=== PATIENT | male | born 1955 | race African-American/Black ===

== ENCOUNTER 2018-09-03 20:46 | Inpatient (IN) ==
[2018-09-03 21:29] LABS: BASO# 0.01 X1000 (0.0-0.2); BASO% 0.1 % (0.0-0.8); EOS# 0.01 X1000 (0.0-0.7); EOS% 0.1 % (0.0-10.0); HEMATOCRIT 44.2 % (42.0-52.0); HEMOGLOBIN 14.8 g/dL (14.0-18.0); IMM GRAN# 0.02 X1000 (0.0-0.04); IMM GRAN% 0.3 % (0.0-0.5); LYMPH# 1.92 X1000 (1.2-3.4); LYMPH% 26.7 % (20.5-51.1); MCH 29.7 PG (27-31); MCHC 33.5 g/dL (33-37); MCV 88.6 FL (81-99); MONO# 0.44 X1000 (0.11-0.59); MONO% 6.1 % (1.7-9.3); MPV 9.6 FL (7.4-10.4); NEUT% 66.7 % (42.2-75.2); PLT 260 X1000 (130-400); RBC 4.99 XMIL (4.7-6.1); RDW 14.2 % (11.5-14.5)
--- NOTE | 2018-09-03 21:29 | Diag Imaging Result Doc PS360 ---
EXAM: CT HEAD W/O CONTRAST 09/03/2018 HISTORY: AMS TECHNIQUE: This exam was performed using automated exposure control, adjustment of mA or kV according to patient size, and/or use of iterative reconstruction technique. COMMENT: There is some encephalomalacia in the right occipital lobe. There is a lacune in the midbrain on the left. There are multiple lacunae present in both basal ganglia and also in the left thalamus. There is patchy lucency throughout the white matter of both hemispheres particularly in the left centrum semiovale ovale and avery radiata regions. There is no evidence of mass effect bleed or abnormal extra-axial fluid collection. There are no previous studies available for comparison. The visualized paranasal sinuses are clear. The calvarium is intact. IMPRESSION: Extensive chronic ischemic changes. No definite evidence of acute disease. Electronically signed by Mendoza Cervantes 09/03/2018 9:27 PM
--- NOTE | 2018-09-03 21:31 | Diag Imaging Result Doc PS360 ---
EXAM: CHEST-1 VIEW 09/03/2018 HISTORY: AMS TECHNIQUE: AP upright chest COMMENT: The lungs are not as well-expanded as on 05/03/2018, considering this there has been no significant change. IMPRESSION: No acute disease. Electronically signed by Mendoza Cervantes 09/03/2018 9:29 PM
[2018-09-03 21:32] LABS: INR 0.95; PROTIME 13.4 Seconds (11.0-16.0)
[2018-09-03 21:33] LABS: PTT 29.1 Seconds (22.3-41.8)
[2018-09-03 21:49] LABS: AGAP 13; ALB/GLOB RATIO 1.1; ALBUMIN 3.8 g/dL (3.5-5.0); ALKALINE PHOSPHATASE 74 U/L (32-122); BUN 8 mg/dL (8-22); CALCIUM 8.7 mg/dL (8.8-10.2); CHLORIDE 101 mmol/L (98-107); CK PROFILE 29 U/L (24-204); COSMO 283; CREATININE 0.8 mg/dL (0.7-1.2); ESTIMATED GFR > 60; GLUCOSE 135 mg/dL (70-104); GOT 11 U/L (10-34); GPT 11 U/L (10-44); POTASSIUM 4.3 mmol/L (3.5-5.1); SODIUM 142 mmol/L (136-145); TCO2 28 mmol/L (25-35); TOTAL BILIRUBIN 0.74 mg/dL (0.20-1.00); TOTAL PROTEIN 7.3 g/dL (6.3-8.3)
[2018-09-03 23:17] LABS: URINE SOURCE CATH
[2018-09-03 23:30] LABS: BILIRUBIN URINE NEGATIVE (NEGATIVE); BLOOD URINE NEGATIVE (NEGATIVE); COLOR YELLOW; GLUCOSE URINE NEGATIVE (NEGATIVE); KETONE URINE NEGATIVE (NEGATIVE); LEUKOCYTES URINE NEGATIVE (NEGATIVE); NITRITE URINE NEGATIVE (NEGATIVE); PROTEIN URINE TRACE mg/dL (NEGATIVE); TURBIDITY URINE CLEAR (CLEAR); UROBILINOGEN URINE 2 mg/dL (NORMAL)
[2018-09-03 23:34] LABS: UR EPITHELIAL CELLS <10 /HPF (<10); URINE BACTERIA NEGATIVE /HPF; URINE RBC <10 /HPF (<10); URINE WBC <10 /HPF (<10)
[2018-09-04] MEDS ORDERED: NS 500 ML IV ONE (00:42)
[2018-09-04 03:32] LABS: UR AMPHETAMINES QUAL NONE DETECTED (NONE DETECT); UR BARBITUATES QUAL NONE DETECTED (NONE DETECT); UR BENZODIAZEPIN QUAL NONE DETECTED (NONE DETECT); UR CANNABINOIDS QUAL NONE DETECTED (NONE DETECT); UR COCAINE QUAL NONE DETECTED (NONE DETECT); UR METHADONE QUAL NONE DETECTED (NONE DETECT); UR OPIATES QUAL NONE DETECTED (NONE DETECT); UR OXYCODONE QUAL NONE DETECTED (NONE DETECT); UR PCP QUAL NONE DETECTED (NONE DETECT)
--- NOTE | 2018-09-04 04:13 | HISTORY AND PHYSICAL ---
CHIEF COMPLAINT: Altered mental status and weakness. HISTORY OF PRESENT ILLNESS: Mr. Henriquez is a 63-year-old male who presented to the emergency room with his today. Per the , he was just acting kind of sluggish and was slow to respond to questions. On evaluation, the patient continued to be just very slow to respond verbally. However, he was alert and oriented times 3. He did not have any focal motor deficits that were noted. Seemed to be moving all extremities. However, he was somewhat sluggish to move as well. This is apparently not the patient's baseline. A CT scan of the patient's head showed extensive chronic ischemic changes, did not show any acute intracranial process. The patient was noted to be hypertensive in the emergency room as well and mildly bradycardic. However, he does take a large dose of metoprolol daily. The patient will be admitted in observation status for further evaluation and treatment. PAST MEDICAL HISTORY: 1. Arthritis. 2. Hypertension. 3. Diabetes mellitus type 2, now insulin dependent. 4. Prostate cancer. PREVIOUS SURGICAL HISTORY: Prostate surgery. SOCIAL HISTORY: Lives at home with his . No tobacco, alcohol or illicit drugs. FAMILY HISTORY: Patient was unable to tell me any chronic illnesses in first-degree relatives. was not present during that portion of interview. ALLERGIES: Lisinopril. HOME MEDICATIONS: 1. Metoprolol 100 mg p.o. daily. 2. Prednisone 15 mg p.o. daily. 3. Levemir 15 units subcutaneous at bedtime. 4. Vitamin D3 50,000 units 1 per week. REVIEW OF SYSTEMS: Fourteen point review of systems conducted with the patient. He denies complaint. Pertinent positives for admission are listed above in the HPI. All other systems reviewed and found to be negative. PHYSICAL EXAMINATION: VITAL SIGNS: Temperature 97.5, pulse 47, respirations 19, blood pressure 188/94, oxygen saturation 96% on room air. GENERAL: Very slow to respond, lethargic-appearing 63-year-old male lying in the ER stretcher. He is alert and oriented times 3, answers all questions appropriately. HEENT: Head is atraumatic, normocephalic. Pupils equal, round, reactive to light. Extraocular eye movement is intact. Sclerae are anicteric. Conjunctiva is pink. Oral mucosa is mildly dry. NECK: Supple. No JVD. No thyromegaly. Trachea is midline. No cervical lymphadenopathy. CARDIAC: S1, S2 appreciated. No murmurs, gallops, rubs. LUNGS: Clear to auscultation bilaterally. No rhonchi, wheezes, rales. Symmetric rise and fall with respirations. ABDOMEN: Soft, nondistended, nontender. Bowel sounds present all 4 quadrants, normoactive. No pulsatile mass. No organomegaly. EXTREMITIES: No clubbing, cyanosis, or edema. One-plus pedal pulses. Bilateral feet are cool to touch. MUSCULOSKELETAL: 3/5 strength bilateral upper and lower extremities, equal bilaterally. GENITOURINARY: No bladder distention. Patient voids. Otherwise deferred. NEUROLOGICAL: Very slow to respond. Alert and oriented times 3. Cranial nerves II through XII appear to be grossly intact. DIAGNOSTIC DATA: A CT of the head showed extensive chronic ischemic changes. Chest x-ray: No acute disease. LABORATORY DATA: CBC within normal limits. Coagulation studies within normal limits. Glucose 135. Otherwise, chemistry panel within normal limits. Urine unremarkable. ASSESSMENT AND PLAN: 1. Rule out cerebrovascular accident. Patient is very weak. He has extensive chronic microvascular changes on his CT scan. We will order an MRI tomorrow morning. However, this does not appear to be a CVA. We will also allow for permissive hypertension overnight. It is possible also that the patient is having progressive vascular dementia that is beginning. 2. Weakness and lethargy. This is of unknown etiology at this time. As noted above, we will order MRI of brain tomorrow. Patient's laboratory data is normal. UDS is pending. However, the patient denies any type of sedating medications. The confirms this as well. 3. Hypertension and hyperlipidemia. Continue home medications. 4. Bradycardia. This was in the 40s and 50s. This is likely the patient's baseline. He does take 100 mg of metoprolol daily. 5. Hypertension with goal to be determined. Patient's states that his blood pressure is usually within normal limits. We will continue to monitor and allow permissive hypertension related to altered mental status. 6. Diabetes mellitus type 2, now insulin dependent. Continue patient's long-acting insulin. Check the fingerstick blood sugar q.a.c. and at bedtime. Hemoglobin A1c and diabetic diet. Further recommendations per patient clinical course. Dictated by PAUL Lowery for Michael Ann MD cc: PAUL Lowery MD
[2018-09-04] MEDS ORDERED: ZOFRAN IV PRN (05:14)
[2018-09-04] MEDS ORDERED: TYLENOL PO PRN (05:14)
--- NOTE | 2018-09-04 05:20 | HISTORY AND PHYSICAL ---
ADDENDUM: Patient seen and examined by myself in the ER. Full note dictated and discussed with nurse practitioner. Patient presented to the hospital with his . She notes that today he started being slow to talk, more fatigued than usual. In the ER, his heart rate 48, blood pressure is 188/94. The patient, however, is awake, alert. He does answer questions appropriately although very slow to respond. He has no focal weakness although does have generalized weakness. We will admit in the hospital, place him on fluids, oxygen and we will follow. cc: Michael Ann MD
[2018-09-04] MEDS: NS 1,000 ML IV SCH (05:58)
[2018-09-04] MEDS: LOVENOX SUBQ SCH (05:59)
[2018-09-04 07:30] LABS: BASO# 0.01 X1000 (0.0-0.2); BASO% 0.1 % (0.0-0.8); EOS# 0.04 X1000 (0.0-0.7); EOS% 0.6 % (0.0-10.0); HEMATOCRIT 43.5 % (42.0-52.0); HEMOGLOBIN 14.5 g/dL (14.0-18.0); IMM GRAN# 0.02 X1000 (0.0-0.04); IMM GRAN% 0.3 % (0.0-0.5); LYMPH# 2.29 X1000 (1.2-3.4); LYMPH% 33.7 % (20.5-51.1); MCH 29.4 PG (27-31); MCHC 33.3 g/dL (33-37); MCV 88.2 FL (81-99); MONO# 0.52 X1000 (0.11-0.59); MONO% 7.6 % (1.7-9.3); MPV 9.7 FL (7.4-10.4); NEUT# 3.92 X1000 (1.4-6.5); NEUT% 57.7 % (42.2-75.2); PLT 224 X1000 (130-400); RBC 4.93 XMIL (4.7-6.1); RDW 14.1 % (11.5-14.5)
[2018-09-04 08:03] LABS: AGAP 11; BUN 7 mg/dL (8-22); CHLORIDE 104 mmol/L (98-107); COSMO 279; CREATININE 0.6 mg/dL (0.7-1.2); ESTIMATED GFR > 60; GLUCOSE 120 mg/dL (70-104); POTASSIUM 3.5 mmol/L (3.5-5.1); SODIUM 140 mmol/L (136-145); TCO2 25 mmol/L (25-35)
[2018-09-04 08:15] LABS: HEMOGLOBIN A1C 8.4 % (4.8-6.0)
--- NOTE | 2018-09-04 09:26 | PROGRESS NOTE ---
DATE: 09/04/2018 Addendum: Patient seen again. He is still slightly confused. We will continue him in the hospital. Heart rates are still 48. We will hold his Toprol. Further orders as needed. cc: Michael Ann MD MTDD
[2018-09-04] MEDS: LOPRESSOR PO SCH (09:41)
[2018-09-04] MEDS ORDERED: VITAMIN D PO SCH (16:30)
[2018-09-04] MEDS: PREDNISONE PO SCH (18:48)
[2018-09-04] MEDS: LEVEMIR SUBQ SCH (21:24)
[2018-09-05] MEDS: LOVENOX SUBQ SCH (04:30)
--- NOTE | 2018-09-05 07:10 | EKG Report ---
Test Performed on : 09/04/2018 06:06:33 AM Test Reason : chest pain Blood Pressure : / mmHG Vent. Rate : 046 BPM Atrial Rate : 046 BPM P-R Int : 118 ms QRS Dur : 102 ms QT Int : 470 ms P-R-T Axes : 059 -21 -33 degrees QTc Int : 411 ms Sinus bradycardia. Minimal voltage criteria for LVH, may be normal variant Nonspecific ST abnormality Abnormal ECG When compared with ECG of 03-SEP-2018 21:36, (Unconfirmed) No significant change was found Confirmed by Brian GENAO, Carlos ([id number]) on 09/05/2018 8:54:22 AM
--- NOTE | 2018-09-05 08:57 | ECHO REPORT ---
ORDER DATE: 09/04/2018 INTERPRETING PHYSICIAN: Dr. Lorenz REQUESTING PHYSICIAN: CLINICAL INDICATIONS: This is a 63-year-old male with shortness of breath, possible stroke. M-MODE MEASUREMENTS: Right ventricle: cm. Left ventricle end diastole: 4.2 cm. Left ventricle end systole: 3.2 cm. Posterior wall: 0.8 cm. Interventricular septum: 0.8 cm. Left atrium: 2.8 cm. Aortic root: 2.9 cm. SUMMARY OF 2-DIMENSIONAL IMAGIN. This study was difficult. Optison was added to visualize endocardium. 2. Left ventricular systolic function appears to be at the lower limits of normal, estimated at 55%. The patient is bradycardic. 3. Aortic valve looks normal. Color flow mapping is unremarkable. 4. Mitral valve showed mild degree of regurgitation. 5. Pulse wave Doppler of mitral inflow shows normal E/A ratio. 6. Tissue Doppler of septal and lateral mitral annulus averages 9 cm. 7. There is no diastolic dysfunction. 8. Tricuspid valve looks normal with minimal degree of regurgitation. 9. Pulmonary pressure is estimated at 29 mmHg. 10.Pulmonic valve appears to be grossly normal. 11.There is no pericardial effusion, mass or thrombus. CONCLUSIONS: In summary, echocardiographic study appears to be grossly within normal range. Clinical correlation is recommended. cc: MD Estuardo Jeronimo CRNP
[2018-09-05] MEDS: LOPRESSOR PO SCH (09:27)
[2018-09-05] MEDS: PREDNISONE PO SCH (09:27)
--- NOTE | 2018-09-05 09:42 | EKG Report ---
Test Performed on : 09/03/2018 9:36:58 PM Test Reason : CP Blood Pressure : / mmHG Vent. Rate : 047 BPM Atrial Rate : 047 BPM P-R Int : 102 ms QRS Dur : 106 ms QT Int : 472 ms P-R-T Axes : 047 -28 -32 degrees QTc Int : 417 ms Sinus bradycardia. with short NE Voltage criteria for left ventricular hypertrophy Nonspecific T wave abnormality Abnormal ECG When compared with ECG of 25-FEB-2016 13:47, No significant change was found Unconfirmed Result
[2018-09-05] MEDS: NS 1,000 ML IV SCH ×2 (11:12→22:45)
[2018-09-05] MEDS ORDERED: INSULIN PEN NEEDLES ONE (13:36)
--- NOTE | 2018-09-05 14:23 | Diag Imaging Result Doc PS360 ---
MRI BRAIN W/WO CONTRAST - 09/04/2018 INDICATION: CVA COMPARISON: Head CT 09/03/2018 FINDINGS: There are significant areas of restricted diffusion at the right basal ganglia. These indicate a recent stroke. No intracranial mass or hemorrhage. There is a stable, small old stroke at the posterior right occipital lobe. There is extensive chronic microvascular disease of the periventricular cerebral white matter. This also involves the eden and the left side of the midbrain. There is no abnormal contrast enhancement. IMPRESSION: Rather extensive recent stroke of the right basal ganglia. This report was discussed with RT Nayla on 09/05/2018 at 2:20 PM and was readback. Electronically signed by Benton Horner 09/05/2018 2:21 PM
[2018-09-05] MEDS ORDERED: ASPIRIN PR SCH (15:15)
--- NOTE | 2018-09-05 15:33 | PROGRESS NOTE ---
DATE: 09/05/2018 SUBJECTIVE: The patient continues to be lethargic. No other issues noted as per nursing staff overnight. OBJECTIVE: Vital Signs: Temperature 98.8 degrees, heart rate 53 respiratory rate 16, blood pressure 139/60, O2 saturation 98% on room air. General: This is a chronically ill appearing, 63- year-old male, lying in bed, in no acute distress. Cardiovascular: S1 and S2 heard. No murmurs, gallops, or rubs. Regular rate and rhythm. Respiratory: Clear bilaterally to auscultation. No work of breathing or using accessory muscles. Abdomen: Soft, nontender to palpation. Bowel sounds present. No organomegaly. Extremities: No clubbing, cyanosis, or edema. Peripheral pulses present in both legs. Neurological: The patient is lethargic. Does not follow commands. LABORATORY DATA: Reviewed. ASSESSMENT AND PLAN: 1. Right basal ganglia stroke. At this point, that is what the report of the MRI showed. At this point because he is not able to get any medication by mouth, will start aspirin per rectal 300 daily. We are going to do swallow evaluation to make sure that he is not aspirating. 2. Hypertension. The patient's blood pressure is under control. He has been receiving metoprolol but considering that he is bradycardic, will stop it and see how he does. 3. Diabetes mellitus type 2. We will continue with sliding scale insulin. Accu-Chek before meals and also at bedtime. Hemoglobin A1c is 8.4. 4. Disposition. We will continue to monitor this patient closely. cc: Tremaine Carlson MD MTDD
--- NOTE | 2018-09-05 16:21 | Diag Imaging Result Doc PS360 ---
BA SWALLOW W/VIDEO SPEECH THER - 09/05/2018 INDICATION: stroke TECHNIQUE: Total fluoroscopy time was 15 seconds. 62 images were obtained. COMPARISON: None FINDINGS: There is a normal swallowing mechanism. Thin liquid and pureed solid consistencies were taken without difficulty. No aspiration or penetration. IMPRESSION: Normal swallowing exam. Electronically signed by Benton Horner 09/05/2018 4:18 PM
[2018-09-05] MEDS: ASPIRIN PO SCH (17:31)
[2018-09-05] MEDS: LEVEMIR SUBQ SCH (22:44)
[2018-09-06] MEDS: NS 1,000 ML IV SCH (04:12)
[2018-09-06] MEDS: LOVENOX SUBQ SCH ×2 (04:12→05:10)
[2018-09-06] MEDS: ASPIRIN PO SCH (09:15)
[2018-09-06] MEDS: PREDNISONE PO SCH (09:15)
[2018-09-06 09:25] LABS: CHOLESTEROL 208 mg/dL (0-200); HDL 49 mg/dL (35-55); LDL 136 mg/dL; TRIGLYCERIDES 116 mg/dL (39-160); VLDL 23 mg/dL
--- NOTE | 2018-09-06 10:59 | CONSULTATION ---
DATE OF CONSULTATION: 09/06/2018 HISTORY OF PRESENT ILLNESS: Mr. Henriquez presented a few days ago with trouble keeping alert, slurred speech. He does not recall that clearly himself now. History from his attentive is that he seemed to be at his baseline state Wednesday night. Wednesday morning, 2 days ago, he got up to the bathroom and seemed to be longer than expected. She went to check on him and found him standing appearing to be sleeping while standing up, very sluggish with movement. She did not notice focal weakness. She helped him to bed. He had trouble staying awake. When he tried to speak, speech seemed slurred and weak. He did not complain of headache, vision disturbance, specific neurologic problem. He was brought to the hospital. Lab showed A1c 8.4%, blood sugars 120s-170s. Urine drug screen was negative. Total cholesterol is slightly elevated at 208. Blood sugars have been controlled. Urine drug screen was all negative. He was afebrile. Initial heart rate was 40s to 60s (home medicines include metoprolol). Initial systolic blood pressures were 150s to 180s, later 130s to 160s. Brain MRI with and without contrast showed evidence of recent ischemic infarction in the right basal ganglia area, possibly multiple small almost confluent infarctions. There are also typical age- related chronic changes and atrophy. There is past history of hypertension, diabetes mellitus, prostate cancer. reports patient supervised his medications himself, but she believes he took them as directed. She reports he did not check blood sugars at home. He does smoke cigarettes. PHYSICAL EXAMINATION: Neurologic: On exam, Mr. Henriquez is awake, alert, attentive. He answered questions appropriately. Speech is a little bit dysarthric, but easily understood. Language function is intact on brief bedside testing. I did not test his cognitive function. Head and neck are unremarkable. Visual dacosta are full tested by confrontational finger counting. Extraocular movements are full. Facial motility seems a little bit diminished bilaterally, but symmetric. Tongue is midline. He can hear. Shoulder shrug is good bilaterally. He has good power in the arms and legs. Tone may be very slightly increased in the left arm. He did well on [id number] testing bilaterally. He reports diminished pinprick in a stocking pattern bilaterally. I did not test his gait. Reflexes are absent at the ankles, 2+ symmetrically at the knees and 1+ symmetrically at the wrists. IMPRESSION: 1. Imaging evidence of acute nondominant subcortical right hemisphere infarction. He does not have a definite consistent focal deficit on my exam. 2. Presentation with sluggishness, trouble staying awake, slurred speech. This is nonfocal and may or may not be related to the recent cerebral infarction. He presented with bradycardia which may have been contributing. 3. I wonder about baseline cognitive impairment. After thorough discussion with , I am not certain. 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 He has stopped taking the initiative with family matters. We might reassess his cognitive function more thoroughly later. If there is cognitive impairment, that would predispose him to a greater degree of encephalopathy with any toxic or metabolic disturbance. RECOMMENDATIONS: I do not have any urgent suggestion. I would continue following blood pressure and treat if systolics exceed 180. Later, we can treat blood pressure more aggressively. Carotid imaging would be reasonable, but is not urgent. I reviewed his risk factors for cerebrovascular disease and strongly encouraged him to quit smoking cigarettes. He needs to be aggressive with management of his blood sugar. I think it would be reasonable to add a statin unless there is contraindication or history of previous intolerance. Thanks for asking Neurology to see Mr. Henriquez. cc: MD SADIE Gan III
--- NOTE | 2018-09-06 11:36 | PROGRESS NOTE ---
DATE: 09/06/2018 SUBJECTIVE: Patient is definitely more awake today. No acute issues noted as per nursing staff overnight. OBJECTIVE: Vital Signs: Temperature 96.7 degrees, heart rate 51, respiratory rate 16, blood pressure 137/50, O2 saturation 99% on room air. General Examination: This is a chronically ill- appearing, 63-year-old, male, lying in bed, in no acute distress. Cardiovascular Examination: S1 and S2 heard. No murmurs, gallops, or rubs. Regular rate and rhythm. Respiratory Examination: Clear bilaterally to auscultation. No work of breathing or using accessory muscles. Abdomen: Soft, nontender to palpation. Bowel sounds present. No organomegaly. Extremities: No clubbing, cyanosis, or edema. Peripheral pulses present in both legs. Neurological Examination: The patient is awake. Moves 4 extremities. Cranial nerves 2-12 grossly normal. Laboratory Data: Reviewed. ASSESSMENT AND PLAN: 1. Right basal ganglia stroke. Clinically, this patient is more awake. He has passed a swallow evaluation so he is on a healthy heart diet. Neurology has evaluated this patient. There is a CT angiogram of the head and neck ordered to complete the workup for a stroke. We will continue with aspirin by mouth. 2. Hypertension. Blood pressure is under control. The patient has been on metoprolol before for blood pressure but is not receiving it. We will continue to allow permissive hypertension. 3. Diabetes mellitus type 2. We will continue with sliding scale insulin, and Accu-Chek before meals and also at bedtime. 4. Disposition. I think this patient needs to go to rehab. [facility] has a bed for him tomorrow so if he is doing much better tomorrow and no other issues noted with this patient, he can be discharged to rehab tomorrow. cc: Tremaine Carlson MD MTDD
--- NOTE | 2018-09-06 12:21 | Diag Imaging Result Doc PS360 ---
EXAM: CT ANGIOGRAM HEAD/NECK 09/06/2018 HISTORY: right basal ganglia stroke TECHNIQUE: This exam was performed using automated exposure control, adjustment of mA or kV according to patient size, and/or use of iterative reconstruction technique. COMMENT: 3-D MIPS were performed. There is no evidence of aneurysm or major branch occlusion. Some calcifications are present in the left carotid bulb and proximal internal carotid artery. There are calcifications in the arch of the aorta the proximal common carotid artery on the left and both subclavian arteries. Both vertebral arteries are patent. IMPRESSION: No evidence of major branch occlusion or significant stenosis. Electronically signed by Mendoza Cervantes 09/06/2018 12:18 PM
[2018-09-06] MEDS: LEVEMIR SUBQ SCH (20:20)
[2018-09-06] MEDS ORDERED: LIPITOR PO SCH (21:00)
[2018-09-07] MEDS: NS 1,000 ML IV SCH ×3 (03:53→09:13)
[2018-09-07] MEDS: LOVENOX SUBQ SCH (04:26)
[2018-09-07 06:51] LABS: BASO# 0.01 X1000 (0.0-0.2); BASO% 0.2 % (0.0-0.8); EOS# 0.07 X1000 (0.0-0.7); EOS% 1.1 % (0.0-10.0); HEMATOCRIT 39.2 % (42.0-52.0); HEMOGLOBIN 13.2 g/dL (14.0-18.0); IMM GRAN# 0.03 X1000 (0.0-0.04); IMM GRAN% 0.5 % (0.0-0.5); LYMPH# 1.92 X1000 (1.2-3.4); LYMPH% 30.6 % (20.5-51.1); MCH 29.7 PG (27-31); MCHC 33.7 g/dL (33-37); MCV 88.1 FL (81-99); MONO# 0.56 X1000 (0.11-0.59); MONO% 8.9 % (1.7-9.3); MPV 9.6 FL (7.4-10.4); NEUT# 3.68 X1000 (1.4-6.5); NEUT% 58.7 % (42.2-75.2); PLT 229 X1000 (130-400); RBC 4.45 XMIL (4.7-6.1); RDW 13.8 % (11.5-14.5); WBC 6.27 X1000 (4.8-10.8)
[2018-09-07 07:11] LABS: AGAP 10; BUN 8 mg/dL (8-22); CALCIUM 8.6 mg/dL (8.8-10.2); CHLORIDE 105 mmol/L (98-107); COSMO 275; CREATININE 0.6 mg/dL (0.7-1.2); ESTIMATED GFR > 60; GLUCOSE 91 mg/dL (70-104); POTASSIUM 3.2 mmol/L (3.5-5.1); SODIUM 139 mmol/L (136-145); TCO2 24 mmol/L (25-35)
[2018-09-07 07:32] VITALS: BP 137/66
[2018-09-07] MEDS: ASPIRIN PO SCH (09:12)
[2018-09-07] MEDS: PREDNISONE PO SCH (09:12)
--- NOTE | 2018-09-07 10:39 | PROGRESS NOTE ---
DATE: 09/07/2018 I observed Mr. Henriquez this morning walking with physical therapy. He required repeated prompting and prodding. His gait is markedly apractic. I do not see significant left hemiparetic component to correlate with his recent subcortical right hemisphere infarction. Therapist notices, if anything, he seems a little slower on the right. Discussed with Ms. Henriquez. She admits there may be some forgetfulness at baseline. 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 We might consider cholinesterase inhibitor trial when practical. CT angiogram of the head and neck was unremarkable. I do not think we need further workup from neurologic standpoint now. Thanks for asking Neurology to see Mr. Henriquez. cc: Zulema Bey III, MD MTDD
[2018-09-07] MEDS ORDERED: MIRALAX PO ONE (11:31)
--- NOTE | 2018-09-07 13:44 | DISCHARGE SUMMARY ---
ADMISSION DATE: 09/06/2018 DISCHARGE DATE: 09/07/2018 ADMISSION DIAGNOSIS: 1. Stroke-like symptoms. 2. Weakness and lethargy. 3. Hypertension and hyperlipidemia. 4. Bradycardia. 5. Diabetes mellitus type 2 requiring insulin. DISCHARGE DIAGNOSIS: 1. Extensive recent stroke at the right basal ganglia. 2. Hypertension. 3. Type 2 diabetes. 4. Hyperlipidemia. CONSULTATIONS: Zulema Bey III, MD with Neurology. DIAGNOSTIC PROCEDURES AND FINDINGS: Chest x-ray 09/03/2018: No acute disease. Head CT 09/03/2018: Extensive ischemic chronic microvascular disease, no acute change. Brain MRI 09/04/2018: Extensive recent stroke of the right basal ganglia. Head/neck CT 09/06/2018: No evidence of major branch occlusion or significant stenosis. HOSPITAL COURSE: Mr. Henriquez is a 63-year-old -[place] male with a history of prostate cancer, who presented to the ER with his after his noted him to be more lethargic and sluggish on day of exam. In the ER, he was noted to be bradycardic in the 50s but there was no acute focal deficits. Head CT was done and did not show anything acute. He was admitted and an MRI the next morning ultimately found that he had a right basal ganglia stroke. Neurology was consulted and agreed with permissive hypertension and risk factor modification specifically blood sugar management as well as nicotine abstinence. Over the next few days, the patient did start to wake up more, stroke workup was completed with an echocardiogram and neck CT none of which showed anything acute. Overall, he is now stable for discharge to [facility]. DISCHARGE MEDICATIONS: Vitamin D3 50,000 units as directed, Levemir 15 units subcutaneously at bedtime, metoprolol 100 mg p.o. daily, aspirin 325 mg daily, Lovenox 40 mg subcutaneously q.24, Lipitor 40 mg p.o. at bedtime. DISCHARGE DIET: Diabetic, heart healthy. DISCHARGE ACTIVITY: Resume activity as tolerated under the direction of [facility]. DISCHARGE LAB DATA: WBC 6.27, hemoglobin 13.2, hematocrit 39.2. Sodium 139, potassium 3.2, chloride 105, CO2 24, anion gap 10, BUN 8, creatinine 0.6, glucose 93, calcium 8.6. DISPOSITION AND OTHER DISCHARGE INSTRUCTIONS: The patient is discharged to [facility]. He is to continue all medication as directed. He is to follow up with Dr. Augustine, Dr. Glaser within a month or sooner if needed. He is to return to the ER or call 911 for worsening complaints or concerns. All questions answered. DISCHARGE TIME: Greater than 35 minutes. Dictated by PAUL Fox for Tremaine Carlson MD Addendum: Patient seen and examined by myself. Agree with PAUL note. It reflects my assessment and plan. Patient is being discharged in stable condition to rehab facility. cc: PAUL Fox MD Eston G. Norwood III, MD Sonya M. Soliman, MD Bhavna Gowda, MD MTDD
[2018-09-07] MEDS ORDERED: VIGAMOX 0.5% OPH SOLN BOTH EYES SCH (15:00)
== END 2018-09-07 13:28 | DRG 66 ==
LOC: SUPCPDRO → 4N 20:46 → ED 20:46 → SUATTDRO 09-04 04:21
PROVIDERS: ATTEND Internal Medicine
CPT/HCPCS: 51702; 70450; 70496; 70498; 70553; 71010; 71045; 74230; 80048; 80053; 80061; 80101; 80301; 80307; 80324; 80345; 80346; 80353; 80358; 80361; 80365; 81001; 82550; 82948; 83036; 83605; 83880; 83992; 84443; 84484; 85025; 85610; 85730; 87040; 92611; 93005; 93010; 93306; 96360; 96361; 97110; 97116; 97162; 97165; 97530; 99285; A9270; A9579; C8929; G0431; G0434; G0479; G0480; J1650; J7030; J7040; J7506; J7512; Q9957; Q9967; XXXXX

== ENCOUNTER 2019-06-03 18:10 | Inpatient (IN) ==
[2019-06-03 19:54] LABS: BASO# 0.01 X1000 (0.0-0.2); BASO% 0.1 % (0.0-0.8); EOS# 0.03 X1000 (0.0-0.7); EOS% 0.4 % (0.0-10.0); HEMATOCRIT 45.6 % (42.0-52.0); HEMOGLOBIN 14.7 g/dL (14.0-18.0); LYMPH# 1.18 X1000 (1.2-3.4); LYMPH% 14.2 % (20.5-51.1); MCH 28.1 PG (27-31); MCHC 32.2 g/dL (33-37); MCV 87.2 FL (81-99); MONO# 0.29 X1000 (0.11-0.59); MONO% 3.5 % (1.7-9.3); MPV 10.1 FL (7.4-10.4); NEUT# 6.82 X1000 (1.4-6.5); NEUT% 81.8 % (42.2-75.2); PLT 282 X1000 (130-400); RBC 5.23 XMIL (4.7-6.1); RDW 14.5 % (11.5-14.5); WBC 8.33 X1000 (4.8-10.8)
[2019-06-03 20:18] LABS: AGAP 14; ALBUMIN 3.7 g/dL (3.5-5.0); ALKALINE PHOSPHATASE 93 U/L (32-122); BUN 10 mg/dL (8-22); CALCIUM 9.3 mg/dL (8.8-10.2); CHLORIDE 103 mmol/L (98-107); COSMO 289; CREATININE 0.8 mg/dL (0.7-1.2); ESTIMATED GFR > 60; GLUCOSE 119 mg/dL (70-104); GOT 30 U/L (10-34); GPT 42 U/L (10-44); POTASSIUM 3.6 mmol/L (3.5-5.1); SODIUM 145 mmol/L (136-145); TCO2 28 mmol/L (25-35); TOTAL BILIRUBIN 0.46 mg/dL (0.20-1.00); TOTAL PROTEIN 7.3 g/dL (6.3-8.3)
--- NOTE | 2019-06-03 20:20 | Diag Imaging Result Doc PS360 ---
EXAM: CT HEAD W/O CONTRAST INDICATION: stroke TECHNIQUE: This exam was performed using automated exposure control, adjustment of mA or kV according to patient size, and/or use of iterative reconstruction technique. COMPARISON: 09/03/2018 FINDINGS: There is advanced white matter microangiopathy, stable. There are stable chronic lacunar infarcts involving the deep coulter matter and periventricular white matter bilaterally. There is stable focal right occipital encephalomalacia. There is no definite acute infarct given the limited sensitivity of CT versus MRI. There is no discrete intracranial mass, mass effect, or intracranial hemorrhage. The surrounding soft tissues and bony structures are essentially unremarkable. IMPRESSION: Stable chronic changes as described. No definite acute intracranial pathology by CT. Electronically signed by Artie Mc 06/03/2019 8:18 PM
[2019-06-03 20:22] LABS: CK PROFILE 350 U/L (24-204)
[2019-06-03 20:31] LABS: URINE SOURCE CATH
--- NOTE | 2019-06-03 20:33 | Diag Imaging Result Doc PS360 ---
EXAM: CHEST-2 VIEWS INDICATION: rhonchi TECHNIQUE: 2 views COMPARISON: 03/01/2019 FINDINGS: There is evidence of prior granulomatous disease, stable. The lungs are grossly clear. There is no discrete pleural fluid collection or pneumothorax. The cardiomediastinal silhouette and central vasculature are grossly unremarkable. IMPRESSION: No evidence of acute pathology by plain radiograph. Electronically signed by Artie Mc 06/03/2019 8:30 PM
[2019-06-03 20:43] LABS: BILIRUBIN URINE NEGATIVE (NEGATIVE); BLOOD URINE NEGATIVE (NEGATIVE); COLOR YELLOW; GLUCOSE URINE NEGATIVE (NEGATIVE); KETONE URINE NEGATIVE (NEGATIVE); LEUKOCYTES URINE NEGATIVE (NEGATIVE); NITRITE URINE NEGATIVE (NEGATIVE); PH URINE 7.5; PROTEIN URINE TRACE mg/dL (NEGATIVE); SP GRAVITY URINE 1.022; TURBIDITY URINE CLEAR (CLEAR); UROBILINOGEN URINE 2 mg/dL (NORMAL)
[2019-06-03 20:44] LABS: UR EPITHELIAL CELLS <10 /HPF (<10); URINE BACTERIA NEGATIVE /HPF; URINE RBC <10 /HPF (<10)
[2019-06-03 21:08] LABS: CK INDEX 1.9 (0.0-2.5); CK-MB 6.53 ng/mL (0.0-5.0)
--- NOTE | 2019-06-03 21:56 | PROVIDER DOCUMENTATION ---
This chart was entered by Abby Paige Scribe, acting as scribe for Lalit Del Valle DO. HPI-Neurological Disorder - General Chief Complaint: Weakness Stated Complaint: BLURRY VISION/WEAKNESS Time Seen by Provider: 06/03/19 19:12 Source: patient, family Allergies/Adverse Reactions: Patient Allergies Allergy/AdvReac Type Severity Reaction Status Date / Time lisinopril Allergy SWELLING Verified 02/25/16 13:19 Home Medications: Home Medication List Medication Instructions Recorded Confirmed Last Taken Type Insulin Detemir [Levemir] 15 unit SUBQ QHS 09/04/18 06/03/19 Unknown History Metoprolol Tartrate 50 mg PO BID 09/04/18 06/03/19 Unknown History Prednisone 2 tab PO DAILY 09/04/18 06/03/19 Unknown History ATORVAstatin [Lipitor] 40 mg PO QHS tab 09/07/18 06/03/19 Unknown Rx Aspirin 325 mg PO DAILY tab 09/07/18 06/03/19 Unknown Rx Baclofen 10 mg PO BID 06/03/19 06/03/19 Unknown History Donepezil [Aricept] 10 mg PO HS 06/03/19 06/03/19 Unknown History Losartan [Cozaar] 50 mg PO HS 06/03/19 06/03/19 Unknown History - History of Present Illness-Neuro Nature of Presenting Problem: 63 y/o male presents to ED with decreased/blurry vision onset last night and decreased ability to walk/stand onset this afternoon. Family of pt reports he slept until 1500 this afternoon and woke up leaning to his left side. Pt has hx R sided CVA. Pt uses walker to ambulate at baseline. Pt only takes aspirin. Pt denies dizziness. Pt states he had one episode of vomiting earlier today. Pt is alert and oriented. Severity: reports: moderate Onset/Duration: reports: this afternoon, last night Timing: reports: still present Context: reports: other (decreased/blurry vision; decreased ability to walk) Character of Altered Mental Status: reports: N/A Any recent trauma/injury?: reports: none Character of Deficits: reports: new weakness, vision problem/glaucoma, decreased ability to stand, decreased ability to walk New weakness or altered sensation location:: reports: general (diffuse) Cognitive Baseline: alert, oriented x3 Gait Baseline: uses a walker Associated Symptoms: reports: decreased ability to walk or stand, trouble walking, vomiting, vision changes Similar Symptoms Previously?: No Recently seen or treated by another doctor?: No Review of Systems - Adult - REVIEW OF SYSTEMS - ADULT Constitutional: denies: chills, fever Eyes: reports: decreased vision, blurred vision Ears, Nose, Mouth & Throat: reports: no symptoms reported Cardiovascular: denies: chest pain, palpitations Respiratory: reports: cough. denies: shortness of breath Gastrointestinal: reports: nausea, vomiting. denies: abdominal pain, diarrhea Genitourinary: reports: no symptoms reported Musculoskeletal: reports: no symptoms reported Integumentary: reports: no symptoms reported Neurological: reports: other (decreased ability to walk/stand). denies: dizziness/vertigo, seizure Psychiatric: reports: no symptoms reported Endocrine: reports: no symptoms reported Hematologic/Lymphatic: reports: no symptoms reported Allergic/Immunologic: reports: no symptoms reported All Other Systems: Reviewed and Negative Past History - Adult - PAST MEDICAL HISTORY-ADULT Review of Records: reports: Old Records Reviewed, Nursing Assessment Review, Medications Reviewed Major Childhood Illnesses: reports: denies history Cardiovascular: reports: HTN Respiratory: reports: asthma Genitourinary: reports: prostate cancer Neurological: reports: CVA Endocrine/Immune: reports: Diabetes - PRIOR SURGERIES/PROCEDURES Surgical/Procedure History: reports: cholecystectomy - IMMUNIZATION STATUS Childhood Immunizations: See Nurse Assessment Flu Vaccine: See Nurse Assessment - FAMILY HISTORY Family History: reviewed, not pertinent - SOCIAL HISTORY Smoking: less than 1 pack/day Provider spent 3-5 mins advising pt. on dangers of tobacco.: Discussed manners to quit use, and f/u contacts for add'l counseling. Substance Use: none/never Alcohol Use Frequency: occasionally Living Situation: family Physical Exam- Neurological - Physical Exam-Neuro Initial Vital Signs Reviewed: Yes General Appearance: appears well, alert, no apparent distress Eye Exam: bilateral eye: normal inspection, PERRL, EOMI HENMT: normocephalic/atraumatic, moist mucous membranes, normal ENT inspection Head Injury: no evidence of injury Neck: non-tender, full range of motion Respiratory: chest non-tender, lungs clear, normal breath sounds Cardiovascular: normal peripheral pulses, regular rate, rhythm Abdominal Exam: normal bowel sounds, non tender, soft Extremity: normal range of motion, 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 negative: sensory deficit Integumentary: normal color, warm/dry Psych/Mental Status: normal mood/affect, normal thought content, normal thought process, oriented x 3 Progress - PLAN OF CARE/RESULTS Progress/Plan/Lab Results: Vital Signs - 8 hr 06/03/19 18:41 06/03/19 19:15 06/03/19 19:29 Temperature 98.2 F Pulse Rate 51 L 51 L 48 L Respiratory Rate 18 19 17 Blood Pressure 159/86 159/81 O2 Sat by Pulse Oximetry 99 100 100 06/03/19 19:52 06/03/19 20:01 06/03/19 20:15 Temperature Pulse Rate 50 L 57 L 52 L Respiratory Rate 17 20 18 Blood Pressure O2 Sat by Pulse Oximetry 100 100 100 06/03/19 20:30 06/03/19 20:45 06/03/19 21:00 Temperature Pulse Rate 48 L 54 L 46 L Respiratory Rate 17 22 15 Blood Pressure 146/70 138/77 O2 Sat by Pulse Oximetry 100 99 98 06/03/19 21:15 06/03/19 21:30 06/03/19 21:31 Temperature Pulse Rate 46 L 46 L 47 L Respiratory Rate 12 16 13 Blood Pressure 150/79 O2 Sat by Pulse Oximetry 99 100 98 Laboratory Results - last 24 hr 06/03/19 06/03/19 06/03/19 19:06 19:06 20:00 WBC 8.33 RBC 5.23 Hgb 14.7 Hct 45.6 MCV 87.2 MCH 28.1 MCHC 32.2 L RDW Std Deviation 14.5 Plt Count 282 MPV 10.1 Immature Gran % (Auto) 0.0 Neut % (Auto) 81.8 H Lymph % (Auto) 14.2 L [place] % (Auto) 3.5 Eos % (Auto) 0.4 Baso % (Auto) 0.1 Immature Gran # (Auto) 0.00 Neut # (Auto) 6.82 H Lymph # (Auto) 1.18 L [place] # (Auto) 0.29 Eos # (Auto) 0.03 Baso # (Auto) 0.01 Sodium 145 Potassium 3.6 Chloride 103 Carbon Dioxide 28 Anion Gap 14 BUN 10 Creatinine 0.8 Estimated GFR/1.73 m2 > 60 BUN/Creatinine Ratio 13 Glucose 119 H POC Glucose 111 H Calculated Osmolality 289 Calcium 9.3 Total Bilirubin 0.46 AST 30 ALT 42 Alkaline Phosphatase 93 Creatine Kinase 350 H Creatine Kinase Index 1.9 CK-MB (CK-2) 6.53 H Total Protein 7.3 Albumin 3.7 Globulin 3.6 Albumin/Globulin Ratio 1.0 Urine Source Urine Color Urine Turbidity Urine pH Ur Specific [place] Urine Protein Ur Glucose (Stick) Ur Ketones (Stick) Urine Blood Urine Nitrite Urine Bilirubin Urobilinogen Dipstick Urine Leukocytes Urine WBC (Auto) Urine RBC (Auto) U Epithel Cells (Auto) Urine Bacteria (Auto) 06/03/19 20:27 WBC RBC Hgb Hct MCV MCH MCHC RDW Std Deviation Plt Count MPV Immature Gran % (Auto) Neut % (Auto) Lymph % (Auto) [place] % (Auto) Eos % (Auto) Baso % (Auto) Immature Gran # (Auto) Neut # (Auto) Lymph # (Auto) [place] # (Auto) Eos # (Auto) Baso # (Auto) Sodium Potassium Chloride Carbon Dioxide Anion Gap BUN Creatinine Estimated GFR/1.73 m2 BUN/Creatinine Ratio Glucose POC Glucose Calculated Osmolality Calcium Total Bilirubin AST ALT Alkaline Phosphatase Creatine Kinase Creatine Kinase Index CK-MB (CK-2) Total Protein Albumin Globulin Albumin/Globulin Ratio Urine Source CATH Urine Color YELLOW Urine Turbidity CLEAR Urine pH 7.5 Ur Specific [place] 1.022 Urine Protein TRACE A Ur Glucose (Stick) NEGATIVE Ur Ketones (Stick) NEGATIVE Urine Blood NEGATIVE Urine Nitrite NEGATIVE Urine Bilirubin NEGATIVE Urobilinogen Dipstick 2 A Urine Leukocytes NEGATIVE Urine WBC (Auto) 10-20 A Urine RBC (Auto) <10 U Epithel Cells (Auto) <10 Urine Bacteria (Auto) NEGATIVE Orders Category Date Time Status CHEST-2 VIEWS [RAD] Stat Exams 06/03/19 19:[address] HEAD W/O CONTRAST [CT] Stat Exams 06/03/19 19:30 Completed CBC WITH ELECTRONIC DIFF [HEME] Stat Lab 06/03/19 19:06 Completed CK PROFILE [SP CHEM] Stat Lab 06/03/19 19:06 Completed COMPREHENSIVE METABOLIC PANEL [CHEM] Stat Lab 06/03/19 19:06 Completed UA NIMS W/REFLEX CULT [URINALYSIS] Stat Lab 06/03/19 20:27 Completed URINE CULTURE [RM] Routine Lab 06/03/19 20:27 Received EKG [EKG] Stat Ther 06/03/19 19:32 Ordered Result Diagrams: 06/03/19 19:06 06/03/19 19:06 - EKG 1 Time of EKG reading by physician:: 19:55 EKG Read and Signed by:: Lalit Del Valle EKG Interpretation (*Must complete 3 of following elements*): Abnormal Rate: 48 Rhythm: Sinus vickie [place]: left QRS: RBB (incomplete), LVH (moderate voltage criteria) WA Interval: normal ST Wave: non-specific ST changes - XRAY 1 XRAY Study: Chest Impression: See EMR Report ([facility] - [address], [address] [place] [id number] [facility] - [address] [place] [address] Department of Imaging Patient: CHIRAG LINARES SrADM Date: 06/03/19#: [id number] : 4ADM Status: REG ERAcct#: [id number] Age/Sex: 63/MRoom/Bed: Loc: ED Ordering Physician: Lalit Del Valle DO Family Physician: Itzel Glaser MD Reason for Procedure: rhonchi Signed EXAM: CHEST-2 VIEWS INDICATION: rhonchi TECHNIQUE: 2 views COMPARISON: 03/01/2019 FINDINGS: There is evidence of prior granulomatous disease, stable. The lungs are grossly clear. There is no discrete pleural fluid collection or pneumothorax. The cardiomediastinal silhouette and central vasculature are grossly unremarkable. IMPRESSION: No evidence of acute pathology by plain radiograph. Electronically signed by Artie Mc 06/03/2019 8:30 PM 06/03/192029 Interpreting Physician: Artie Mc MD Dictated Date/Time: 06/03/192029 cc: Lalit Del Valle DO; Itzel Glaser MD) - CT/MRI 1 CT Study: Head Impression: See EMR Report ([facility] - [address], [address], [place] [address] [facility] - [address] [place] [address] Department of Imaging Patient: CHIRAG LINARES SrADM Date: 06/03/19MR#: [id number] : 1955DM Status: REG ERAt#: A [id number] Age/Sex: 63/MRoom/Bed: Loc: ED Ordering Physician: Lalit Del Valle DO Family Physician: Itzel Glaser MD Reason for Procedure: stroke Signed EXAM: CT HEAD W/O CONTRAST INDICATION: stroke TECHNIQUE: This exam was performed using automated exposure control, adjustment of mA or kV according to patient size, and/or use of iterative reconstruction technique. COMPARISON: 09/03/2018 FINDINGS: There is advanced white matter microangiopathy, stable. There are stable chronic lacunar infarcts involving the deep coulter matter and periventricular white matter bilaterally. There is stable focal right occipital encephalomalacia. There is no definite acute infarct given the limited sens itivity of CT versus MRI. There is no discrete intracranial mass, mass effect, or intracranial hemorrhage. The surrounding soft tissues and bony structures are essentially unremarkable. IMPRESSION: Stable chronic changes as described. No definite acute intracranial pathology by CT. Electronically signed by Artie Mc 06/03/2019 8:18 PM 06/03/192017 Interpreting Physician: Artie Mc MD Dictated Date/Time: 06/03/192015 cc: Lalit Del Valle DO; Itzel Glaser MD) - CONSULTS/PCP/HOSPITALIST Notification #1 *Consult/PCP/Hospitalist*: Dr. Dugan Time Discussed: 21:55 Consult Disposition: Will see in ED Departure - Departure Date of Disposition Decision: 06/03/19 Time of Disposition Decision: 21:55 DIAGNOSIS: CVA (cerebral vascular accident) Disposition: ADMITTED INPATIENT 09 Certified Medical Emergency: Emergent Condition: Fair Referrals and Follow-Ups: Itzel Glaser MD [Primary Care Provider] - Discharge Education: Steps to Quit Smoking, [id number] - Critical Care Note This patient required my direct & personal management of CC.: No Attestation - Physician/ PAM Attestation Patient care was provided by Advanced Practice Provider:: No The physician spent face to face time with patient:: Yes Advanced Practice Provider documentation review:: Supervising physician onsite and consulted in the evaluation and care of this patient. The physician did have a face to face encounter with the patient. This chart was documented by the indicated scribe, (Abby Paige Scribe) and accurately reflects the services I performed and decisions made by me, Lalit Del Valle DO, as attested by the provider's signature.
[2019-06-03] MEDS ORDERED: NS 1,000 ML IV ONE (22:47)
--- NOTE | 2019-06-03 22:54 | EKG Report ---
Test Performed on : 06/03/2019 7:55:50 PM Test Reason : stroke like symptoms Blood Pressure : / mmHG Vent. Rate : 048 BPM Atrial Rate : 048 BPM P-R Int : 124 ms QRS Dur : 092 ms QT Int : 462 ms P-R-T Axes : 051 -30 -29 degrees QTc Int : 412 ms Sinus bradycardia. Left axis deviation Incomplete right bundle branch block Moderate voltage criteria for LVH, may be normal variant Nonspecific ST abnormality Abnormal ECG When compared with ECG of 04-SEP-2018 06:06, Incomplete right bundle branch block is now present Unconfirmed Result
[2019-06-03 23:56] LABS: INR 0.99; PROTIME 13.2 Seconds (11.0-16.0); PTT 28.6 Seconds (22.3-41.8)
[2019-06-04] MEDS ORDERED: ASPIRIN PO ONE (00:18)
[2019-06-04] MEDS ORDERED: TYLENOL PO PRN (01:35)
[2019-06-04] MEDS ORDERED: ZOFRAN IV PRN (01:35)
[2019-06-04] MEDS ORDERED: NICODERM PATCH TD PRN (01:35)
[2019-06-04] MEDS ORDERED: NS 1,000 ML IV SCH (01:45)
[2019-06-04] MEDS: DUONEB (A & A) INH SCH ×4 (03:57→22:53)
--- NOTE | 2019-06-04 05:26 | Diag Imaging Result Doc PS360 ---
EXAM: CT THORAX W/O CONTRAST HISTORY: Crackles/Rhonchi Wicho. Full Lung Craft,cough TECHNIQUE: CT chest without intravenous contrast COMPARISON: None. FINDINGS: No pleural effusions. No cardiomegaly. No aortic aneurysm. Moderate atherosclerosis. Many calcified mediastinal nodes with many scattered calcified granuloma. There is a 7 mm hazy nodule in the apical segment of the right lower lobe. There may be a small amount of air within it. No consolidation. No bronchiectasis. Limited images through the upper abdomen reveal cholecystectomy. IMPRESSION: 1.There is evidence of a prior granulomatous infection 2.No acute pneumonia 3.Small nonspecific nodule in the apical segment of the right lower lobe 4.A preliminary report was given at 1:49 PM This exam was performed using automated exposure control, adjustment of mA or kV according to patient size, and/or use of iterative reconstruction technique. Electronically signed by Sher Pérez 06/04/2019 5:23 AM
[2019-06-04 06:25] LABS: BASO# 0.01 X1000 (0.0-0.2); BASO% 0.2 % (0.0-0.8); EOS# 0.03 X1000 (0.0-0.7); EOS% 0.5 % (0.0-10.0); HEMATOCRIT 41.8 % (42.0-52.0); HEMOGLOBIN 13.7 g/dL (14.0-18.0); LYMPH# 1.78 X1000 (1.2-3.4); LYMPH% 27.9 % (20.5-51.1); MCH 28.6 PG (27-31); MCHC 32.8 g/dL (33-37); MCV 87.3 FL (81-99); MONO# 0.48 X1000 (0.11-0.59); MONO% 7.5 % (1.7-9.3); NEUT# 4.09 X1000 (1.4-6.5); NEUT% 63.9 % (42.2-75.2); PLT 240 X1000 (130-400); RBC 4.79 XMIL (4.7-6.1); RDW 14.3 % (11.5-14.5); WBC 6.39 X1000 (4.8-10.8)
[2019-06-04] MEDS: HUMULIN R SUBQ SCH ×4 (06:29→20:42)
[2019-06-04 07:10] LABS: AGAP 12; ALBUMIN 3.1 g/dL (3.5-5.0); ALKALINE PHOSPHATASE 78 U/L (32-122); BUN 9 mg/dL (8-22); CALCIUM 8.4 mg/dL (8.8-10.2); CHLORIDE 106 mmol/L (98-107); COSMO 284; CREATININE 0.7 mg/dL (0.7-1.2); ESTIMATED GFR > 60; GLUCOSE 107 mg/dL (70-104); GOT 24 U/L (10-34); GPT 34 U/L (10-44); POTASSIUM 3.3 mmol/L (3.5-5.1); SODIUM 143 mmol/L (136-145); TCO2 25 mmol/L (25-35); TOTAL BILIRUBIN 0.47 mg/dL (0.20-1.00); TOTAL PROTEIN 6.1 g/dL (6.3-8.3)
--- NOTE | 2019-06-04 07:37 | HISTORY AND PHYSICAL ---
CHIEF COMPLAINT: Lower extremity weakness. HISTORY OF PRESENT ILLNESS: Mr. Navid Henriquez is a 63-year-old male with a history of previous CVA, hypertension, diabetes, and also a history of prostate cancer, status post prostatectomy. The patient is unable to state why he is in the hospital. However, on review of the ED documentation, the patient was noted to have presented to the hospital because of decreased vision, as well as decreased ability to stand/walk. He did have a CT scan of the brain done without contrast, which did not reveal any abnormalities. No family present at bedside. PAST MEDICAL HISTORY: Hypertension, type 2 diabetes mellitus, history of prostate cancer, history of arthritis, hyperlipidemia, history of stroke. PAST SURGICAL HISTORY: The patient has had prostatectomy as well as cholecystectomy. ALLERGIES: The patient is allergic to lisinopril. FAMILY HISTORY: Positive for diabetes. MEDICATIONS: His medications include the following: Levemir 15 units subcutaneously twice a day, metoprolol 50 mg p.o. twice a day, prednisone 2 tablets daily, atorvastatin 40 mg p.o. at bedtime, aspirin 325 mg p.o. once a day, baclofen 10 mg p.o. twice a day, Aricept 10 mg p.o. at bedtime, losartan 50 mg p.o. at bedtime. SOCIAL HISTORY: Smokes cigarettes. No alcohol or drug use. REVIEW OF SYSTEMS: Constitutional: No fever. 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 Eyes: Has blurred vision. Cardiovascular: No chest pain. Respiratory: Has cough. GI: No nausea, vomiting, diarrhea, or constipation. : No dysuria. No hematuria. Psychiatric: No anxiety or depression. Endocrine: No thyroid disease or diabetes. Dermatology: No skin lesions. Hematology: No bleeding problems. Musculoskeletal: Has joint pains. Allergy/Immunology: No symptoms suggestive of allergic rhinitis. PHYSICAL EXAMINATION: VITAL SIGNS: Temperature 98.3 degrees, pulse 64, respirations 19, blood pressure is 154/81, oxygen saturation 99%. HEENT: Atraumatic, normocephalic. He is anicteric. Extraocular movements intact. No oral lesions noted. NECK: Supple. No jugular venous distention. No thyromegaly or lymphadenopathy. CARDIOVASCULAR: S1, S2. RESPIRATORY: Has evidence of good air entry bilaterally. ABDOMEN: Soft, nontender. No masses felt. EXTREMITIES: No evidence of edema. CENTRAL NERVOUS SYSTEM: The patient is awake, alert, and no obvious focal deficits noted. IMAGING AND LABORATORY DATA: WBC 8.33, hematocrit is 45.6, with a platelet count of 282,000. Sodium is 145, potassium 3.6, chloride is 103, bicarb 28, BUN is 10, creatinine 0.8. Troponin level is 26. UA shows about 10 to 20 WBCs per high-power field. Chest CT shows evidence of a small nonspecific nodule in the apical segment of the right lower lobe. EKG shows incomplete right bundle-branch block, with moderate criteria for LVH, nonspecific ST abnormalities, left axis deviation. Chest x-ray: No acute infiltrates noted. ASSESSMENT AND PLAN: 1. Probable lower extremity weakness. Will obtain an MRI of the brain without contrast, as well as MRI of the lumbar spine. Check thyroid function tests. CK level is noted to be high, which may be indicative of myositis. Also will consider holding off on atorvastatin, which could cause myopathy. 2. Hypertension. Continue current antihypertensive regimen. 3. Diabetes mellitus. Monitor blood sugar levels. Maintain the patient on sliding scale insulin. Check hemoglobin A1c level. 4. History of cerebrovascular accident. Maintain the patient on antiplatelet agent. Recommend physical therapy. 5. History of prostate cancer, status post prostatectomy. Await. 6. Probable urinary tract infection. Obtain urine culture, as well as blood cultures. 7. Elevated troponin. Consult with Cardiology. 8. Pulmonary nodule. Follow up with Pulmonology in the outpatient. 9. Deep vein thrombosis prophylaxis. Lovenox. 10. Gastrointestinal prophylaxis. Proton pump inhibitor. cc: Xavier Dugan MD
--- NOTE | 2019-06-04 07:37 | HISTORY AND PHYSICAL ---
PRIMARY CARE PROVIDER: Dr. Glaser. DATE AND TIME: 06/04/2019 at 0015. CHIEF COMPLAINT: Weakness. HISTORY OF PRESENT ILLNESS: Mr. Henriquez is a 63-year-old, -Maltese male who presented to the emergency department this evening with reports of weakness. The patient was able answer my questions, though the did provide a lot of assistance with the history of present illness. She reported that last night, he complained of having some vision problems. The patient reported that he was having double vision. She also reports that for the past few days that he has been not acting like himself. She states that normally, he gets up around 5 in the morning, gets up, dresses himself, and fixes his coffee. She states, the last couple days that he has just been lying around, sleeping a lot. She said that other than him being more sleepy, the double vision, she reported, started last night. That would be on the 02 of June. She stated that, like normally, usually he gets up at 5 o'clock in the morning, though she states today, on the , that he slept until 3 p.m. She said that when she went to help him get up out of bed, that he could not stand or walk. She stated that when she went to get him, that he kept falling and slumping to the left side. According to her, he does use a walker at baseline to ambulate. The patient or the patient's deny him recently being sick or not feeling well up until a couple days ago. She did state that they were in Dr. Glaser's office approximately a month ago for what I assume was a regular appointment. She did hear some concerning lungs sounds and did do a chest x-ray, though it did not show a pneumonia. She denies him recently taking any antibiotics for anything. He does have a history of having a right basal ganglia stroke in August 2018. The patient reports that since his stroke in August, that he has had some residual right-sided weakness and numbness/decreased sensation in his right hand. He does take a 325 mg aspirin daily and did take this when he got up at 3 p.m. I did ask if the patient had any recent new prescriptions for medications or had any changes in his current medicines. His did state that they did give him a new prescription for baclofen. According to the patient's external medication history, it looks like this was first written back on April 05. This is not an acutely new medicine. He has been taking this for approximately 2 months. Also, I did note that the patient's heart rate was slightly bradycardic, in the high 40s to mid 50s, in the ER. Looking back, it looks like back in August, he did have bradycardia as well when he was admitted. He does take metoprolol tartrate 50 mg twice daily. The patient's reports that he takes this for blood pressure. He has not had a history of having any tachycardia in the past, though she denied any recent increases in this medication. Upon my evaluation in the ER, the patient was resting in bed with his eyes closed. He did fall asleep once or twice during my examination, though was easily arousable by verbal calling of his name. Once awoken, he was alert and oriented to person, place, time, and situation. He was able to answer questions appropriately and follow commands appropriately. He states, this time, that the vision trouble, as far as the double vision that he was having the night before last, has subsided. He is not reporting any visual disturbances at this time. He denies any headache, dizziness, or feeling lightheaded. He denies any difficulty with speech. His also states that she has not noticed a difference or change in his speech pattern. He is able to sit up, cough, clear his throat, and is managing his oral secretions appropriately. He denies any chest pain or shortness of breath, though his states he has had a cough for over a month since they saw Dr. Glaser. He has had a wet cough. The patient or the patient's deny him having any known fever, body aches, or chills. He denies any abdominal pain or vomiting, though he did state that he did get nauseated earlier in the day. He denies any diarrhea. He denies any dysuria or urinary frequency. He also denies any pain, numbness, tingling, or swelling in extremities. The patient, at this time, is not reporting that he feels any unilateral weakness. This is just generalized. He does have some residual right hand numbness from his previous stroke. At this time, he is not reporting any new or worsened unilateral numbness or tingling. Pupils were equal, round, reactive to light, were 3 mm bilaterally. EOMs were intact. There was no facial droop noted. 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 On the finger- to-nose test, he did have some very slight ataxia noted on the left upper extremity. Also, it did appear that he may have had some slight pronator drift noted on the right upper extremity. Muscle strength in his lower extremities did appear to be equal. The patient is diabetic, though his serum glucose and fingerstick blood sugars were within normal limits. His electrolytes were within normal limits as well. EKG did show sinus bradycardia with a left axis deviation and an incomplete right bundle branch block, at a rate of 48. His CK was 350, troponin T was 26. The patient is denying any chest pain. CT of the head without contrast showed stable chronic changes, though no acute intracranial pathology. Chest x- ray showed no evidence of acute pathology. Given his history, the patient will be admitted inpatient for further evaluation of possible CVA. Also, upon examination, the patient has reported, as previously mentioned, a wet cough for over a month now. He did have a chest x- ray performed by Dr. Glaser. Given these findings, though, it did not show any pneumonia. Upon auscultation, he did have rhonchi and crackles noted in bilateral full lung dacosta. He is a smoker and has smoked for approximately 50 years. We did do a CT thorax without contrast which did not show any acute process. There was no consolidation. There was no mass, consolidations, pleural effusions, or pneumothorax. There was a 9 mm subpleural part solid nodule in the apical segment of the right lower lobe. Radiology did recommend follow up on this. REVIEW OF SYSTEMS: A 14 point review of systems was conducted with the patient and all were negative except for pertinent positives mentioned in the HPI. PAST MEDICAL HISTORY: 1. Rheumatoid arthritis. 2. Hypertension. 3. Hyperlipidemia. 4. Diabetes mellitus type 2. 5. Prostate cancer. 6. History of a right basal ganglia CVA in August 2018 for which the patient reports that he now has residual right-sided weakness and some numbness/decreased sensation in his right hand. PAST SURGICAL HISTORY: 1. Cholecystectomy. 2. Prostate surgery. SOCIAL HISTORY: The patient does live at home with his . She was present at bedside during my examination. He does use the ambulatory assistance of a walker at baseline. The patient is a current smoker. His reports that he has smoked for 50 years. He is smoking a half a pack per day now, though she stated that he previously did smoke more than this on a daily basis. There is no known alcohol or illicit drug use. FAMILY HISTORY: Positive for his mother having a history of diabetes and hypertension. He states he does not remember his father having any medical problems. ALLERGIES: Patient has allergies to lisinopril, stating that it caused him to have angioedema. HOME MEDICATIONS: 1. Aspirin 325 mg p.o. daily. 2. Lipitor 40 mg p.o. at bedtime. 3. Baclofen 10 mg p.o. b.i.d. 4. Aricept 10 mg p.o. at bedtime. 5. Levemir 15 units subcutaneous at bedtime. 6. Cozaar 50 mg p.o. at bedtime. 7. Metoprolol tartrate 50 mg p.o. b.i.d. 8. Prednisone 10 mg p.o. daily. DIAGNOSTIC DATA/LABORATORY RESULTS: White blood cell count is 8330, hemoglobin 14.7, hematocrit 45.6, platelet count is 282,000. PT 13.2, INR 0.99, PTT is 28.6. Sodium 145, potassium 3.6, chloride 103, serum bicarb is 28, BUN 10, creatinine 0.8, with a GFR of greater than 60, glucose 119, calcium 9.3, magnesium 2.1. Liver function tests within normal limits. CK 350, CK index 1.9, CK-MB is 6.53, troponin T is 26. Urinalysis was obtained via catheter. It was positive for trace protein and 10 to 20 of white blood cells. It was negative for glucose, ketones, blood, nitrites, leukocytes, or bacteria. EKG showed sinus bradycardia, left axis deviation, incomplete right bundle branch block, at a rate of 48, with a QTc of 412. CT of the head without contrast did show advanced white matter microangiopathy, which is stable. There were some stable chronic lacunar infarcts involving the deep coulter matter and periventricular white matter bilaterally. There was also a stable focal right occipital encephalomalacia, though there were no definite acute infarcts and there were no discrete intracranial masses, mass effect, or intracranial hemorrhage. This is per radiology. Please see full CT report for all detailed findings. A chest x-ray showed no evidence of acute pathology. There was some evidence of prior granulomatous disease, which was stable. A CT of the thorax without contrast showed no acute process in the chest. There was evidence of prior granulomatous process. Also noted was a nonspecific 9 mm right lower lobe nodule. According to the ACR white paper recommendations, the radiologist suggests the following: A followup chest CT at 3 to 6 months to confirm persistence. If the nodule is persistent, consider PET/CT, tissue sampling, or surgical resection. PHYSICAL EXAMINATION: VITAL SIGNS: Temperature 98 degrees, heart rate 63, respirations 17, blood pressure is 154/71, oxygen saturation is 100% on room air. GENERAL: Mr. Henriquez is a pleasant, 63-year-old, -[place]ese male. He was resting on the ER stretcher with his eyes closed upon my arrival to the room, though was easily arousable with verbal stimulation. Once awoken, he was alert and oriented to person, place, time, and situation. He was able to answer questions appropriately and follow commands. Throughout my examination, he did drift off to sleep once or twice, though, as previously mentioned, he is easily arousable. HEENT: Head is atraumatic, normocephalic. Pupils are equal, round, reactive to light, were 3 mm bilaterally and brisk. EOMs were intact. Oral mucosa was moist. Oropharynx was clear. NECK: Supple. Trachea midline. There were no carotid bruits noted upon auscultation bilaterally. CARDIOVASCULAR: The patient has S1 and S2 present. No murmurs, gallops, or rubs appreciated, with a bradycardic rate that is regular. PULMONARY: The patient has symmetrical chest expansion bilaterally. Lung sounds in bilateral full dacosta did have rhonchi and crackles noted. ABDOMEN: Soft. It does not appear to be distended. He was nontender upon palpation. Bowel sounds were present in all 4 quadrants, were normoactive. EXTREMITIES: No cyanosis or edema noted. Pulse, motor, and sensory are intact in all extremities. Radial and pedal pulses are 2+ bilaterally. The patient only reported his residual right hand numbness from his previous stroke. INTEGUMENTARY: The patient's skin color is normal for his race, is dry and intact. NEUROLOGICAL: The patient is alert and oriented to person, place, time, and situation. He is able to follow commands and answer questions appropriately. Upon exam, pupils were equal, round, and reactive to light, were 3 mm bilaterally. His EOMs were intact. He is not reporting any visual disturbances at this time. Him or his are not reporting him having any speech disturbances. His speech to me was clear and understandable. He had no facial droop noted. He did have some weakness noted on his right side when performing hand grasps. The patient did have some slight ataxia noted when doing the [id number] test on his left upper extremity. He also did appear to maybe have a slight pronator drift on his right side as well. Pulse, motor, sensory, muscle strength in lower extremities were equal. ASSESSMENT AND PLAN: 1. Cerebrovascular accident. For further treatment and evaluation, the patient will be continued on his aspirin 325 mg daily. He did take one of these when he woke up sometime between 3 and 4 p.m. on the . He woke up with the symptoms that I described in the above history of present illness. Given this, we did not give an additional dose on his arrival to the emergency room. We will continue this back starting in the morning. We will continue his Lipitor as well. We will perform an MRI on Wednesday. We will also repeat an echocardiogram in the morning as well. The patient did have a CT angiogram of the head and neck in August of 2013 which did not show any major branch occlusion or significant stenosis. Given this, I will repeat this. I will leave this to the discretion of neurology and his attending physician. We have placed a consult with neurology. We will await their evaluation and further recommendations for management. The patient did pass a mini swallowing screen in the emergency room. Given this, we did go ahead and start his diabetic diet back. He will be on continuous cardiac telemetry. We will do every 4 hour vital signs and neurological checks. We will continue to monitor this closely. 2. Bradycardia. The patient's electrocardiogram did show a sinus bradycardia, though it does look as though, looking back at his vital sign trend from this admission and his previous admission in August, he has been having bradycardia in high 40s to mid 50s. The patient does not seem to be symptomatic with this. His other vital signs are within normal limits. Given this, I am holding his metoprolol at this time. We are going to allow some for some permissive hypertension as well. If this is started back, the metoprolol dose may need to be adjusted, given his bradycardia. 3. Pulmonary nodule. The patient did have bilateral rhonchi and crackles noted, as well as a persistent cough for a month and is a heavy smoker. This is why we performed a CT. They did find findings of a pulmonary nodule. They did recommend followup chest CT in 3 to 6 months to confirm persistence and if the nodule was persistent, consider PET/CT, tissue sampling, or surgical resection. This can be followed up outpatient with his physician, Dr. Glaser, though this does need to be set up upon discharge. 4. History of hypertension. We are holding his Cozaar and metoprolol at this time, given that we do want to allow for some permissive hypertension. We will monitor blood pressure closely and implement antihypertensive as necessary. We are holding his metoprolol, given his bradycardia as well. 5. Diabetes mellitus. We are holding his long-acting insulin. His said that he has not been eating or drinking as well over the past few days. We will just do a sliding scale insulin at this time. We will do pattern fingerstick blood sugars. 6. Hyperlipidemia. We have continued atorvastatin. 7. Rheumatoid arthritis. We have continued his prednisone. We did hold his baclofen, given that he was a little drowsy upon my examination, as well as since he does have worsened weakness at this time, just in case this may be medication-related. 8. Asymptomatic bacteriuria. His urine did have a few white blood cells, though he is not reporting any symptoms. We have ordered a urine culture. We will await those and continue to follow. 9. Nicotine dependence. We have placed orders for an as needed nicotine patch. We will continue to licensed mental health counselor the patient on smoking cessation throughout his admission and upon discharge, especially given his history of stroke. 10. Deep vein thrombosis prophylaxis will be provided with sequential compression devices. The patient has been placed on the medical floor with telemetry. We will do vital signs and neurological checks every 4 hours, incentive spirometry. We are going to go ahead and do some aggressive pulmonary toilet with frequent turn, coughing, and scheduled breathing treatments. We will repeat a CBC, CMP, CK profile, and troponin a little later this morning. Further orders and recommendations pending hospital course, diagnostic studies, and physician evaluation. Dictated by PAUL Colin for Xavier Dugan MD cc: Xavier Dugan MD [facility]
[2019-06-04 08:19] LABS: CK INDEX 2.1 (0.0-2.5); CK-MB 4.33 ng/mL (0.0-5.0)
[2019-06-04] MEDS: ASPIRIN PO SCH (09:22)
[2019-06-04] MEDS: PREDNISONE PO SCH (09:23)
[2019-06-04] MEDS: LIPITOR PO SCH (20:42)
[2019-06-04] MEDS: ARICEPT PO SCH (20:42)
[2019-06-04] MEDS ORDERED: LIPITOR PO SCH (21:00)
[2019-06-05] MEDS: DUONEB (A & A) INH SCH ×4 (03:30→23:01)
[2019-06-05] MEDS: HUMULIN R SUBQ SCH ×4 (06:00→22:35)
[2019-06-05 07:33] LABS: BASO# 0.01 X1000 (0.0-0.2); BASO% 0.1 % (0.0-0.8); EOS# 0.01 X1000 (0.0-0.7); EOS% 0.1 % (0.0-10.0); HEMATOCRIT 38.5 % (42.0-52.0); HEMOGLOBIN 12.4 g/dL (14.0-18.0); IMM GRAN# 0.02 X1000 (0.0-0.04); IMM GRAN% 0.2 % (0.0-0.5); LYMPH# 1.74 X1000 (1.2-3.4); LYMPH% 19.4 % (20.5-51.1); MCH 28.2 PG (27-31); MCHC 32.2 g/dL (33-37); MCV 87.7 FL (81-99); MONO# 0.49 X1000 (0.11-0.59); MONO% 5.5 % (1.7-9.3); MPV 9.9 FL (7.4-10.4); NEUT# 6.68 X1000 (1.4-6.5); NEUT% 74.7 % (42.2-75.2); PLT 222 X1000 (130-400); RBC 4.39 XMIL (4.7-6.1); RDW 14.4 % (11.5-14.5); WBC 8.95 X1000 (4.8-10.8)
[2019-06-05 07:44] LABS: HEMOGLOBIN A1C 6.4 % (4.8-6.0)
[2019-06-05 08:02] LABS: AGAP 13; BUN 5 mg/dL (8-22); CALCIUM 8.5 mg/dL (8.8-10.2); CHLORIDE 107 mmol/L (98-107); COSMO 283; CREATININE 0.7 mg/dL (0.7-1.2); ESTIMATED GFR > 60; GLUCOSE 110 mg/dL (70-104); MAGNESIUM 1.6 mg/dL (1.5-2.7); PHOSPHORUS 3.4 mg/dL (2.7-4.5); POTASSIUM 2.7 mmol/L (3.5-5.1); SODIUM 143 mmol/L (136-145); TCO2 23 mmol/L (25-35)
[2019-06-05] MEDS ORDERED: KLOR-CON PO ONE (09:34)
[2019-06-05] MEDS ORDERED: MAGNESIUM SULFATE 2 GM/S.W.I. 2 GM/50 ML IVPB IV ONE (10:04)
[2019-06-05] MEDS: ASPIRIN PO SCH (11:05)
[2019-06-05] MEDS: PREDNISONE PO SCH (11:05)
--- NOTE | 2019-06-05 11:09 | Diag Imaging Result Doc PS360 ---
MRI BRAIN W/O CONTRAST - 06/04/2019 INDICATION: r/o cva COMPARISON: Head CT 06/03/2019, brain MRI 09/05/2018 FINDINGS: There is a tiny focus of hyperintense signal in the posterior middle cerebral peduncle on the left side. This is new from prior exam. Otherwise, there is severe periventricular cerebral white matter hyperintensity compatible with chronic microvascular ischemia. This also affects the eden and midbrain. The posterior right occipital lobe is also affected. No intracranial mass or hemorrhage. Stable atrophic pituitary. IMPRESSION: Very tiny, recent white matter infarction of the left cerebellar peduncle. In addition to the advanced, diffuse chronic microvascular ischemia of the white matter. This report was discussed with RT Mingo on 06/05/2019 at 11:05 AM and was readback. Electronically signed by Benton Horner 06/05/2019 11:07 AM
--- NOTE | 2019-06-05 11:29 | Diag Imaging Result Doc PS360 ---
MRI LUMBAR SPINE W/O CONTRAST - 06/04/2019 INDICATION: r/o lumber radiculopathy COMPARISON: None FINDINGS: There is some dependent soft tissue edema. Otherwise sanon soft tissues are normal. Alignment is anatomic. Vertebral body heights and intervertebral disc spaces are preserved. Bone marrow signal is normal. No disc herniation. No central canal or neural foraminal stenosis. The conus is seen at T12-L1 and appears normal. Sacroiliac joints appear normal. IMPRESSION: Negative exam. Electronically signed by Benton Horner 06/05/2019 11:26 AM
--- NOTE | 2019-06-05 12:17 | PROGRESS NOTE ---
DATE: 06/05/2019 SUBJECTIVE: This patient is resting comfortably in bed. He is completely awake. He is oriented. He is following commands and answering my questions. He does have some generalized weakness, mostly at the level of the lower extremities. Also, he has some discharge and redness at the level of the eyes, probably conjunctivitis. I will start treatment for that. OBJECTIVE: Vital Signs: Temperature 98.6 degrees, pulse 82, respiratory rate 16, blood pressure 128/64, oxygen saturation 95% on room air. HEENT: Head normocephalic. No trauma. Eyes: He has some discharge bilaterally with redness. PERRLA. Neck: Supple. No JVD. No masses. Central trachea. Chest: Clear to auscultation. No wheezing. No rales. Abdomen: Soft, nontender, nondistended. No hepatosplenomegaly. Extremities: No edema. Neurological: This patient is awake. He is alert. I do not see any strong weakness, probably some mild at the level of the right upper extremity, but it is hard to say. LABORATORY DATA: WBC 8.9, hemoglobin 12.4, hematocrit 38.5, platelets 222,000. Sodium 143, potassium 2.7, chloride 107, bicarbonate 23, BUN 5, creatinine 0.7, glucose 110, calcium 8.5. Magnesium 1.6. ASSESSMENT AND PLAN: 1. Very tiny recent white matter infarction of the left side of the cerebellar peduncle, in addition to the advanced diffuse chronic microvascular ischemia of the white matter. This patient's blood pressure has been stable, as well as the diabetes. Actually, his hemoglobin A1c is good at 6.4. He has been placed on statin. There is a concern of myositis due to a little increase of the CK level, which is trending down. I will repeat it tomorrow. 2. Hypertension, controlled. 3. Diabetes. Hemoglobin A1c 6.4. Well controlled. 4. History of cerebrovascular accident. I will continue with the same management for now. Will wait for more Neurology Department evaluation and recommendations. 5. History of prostate cancer, status post prostatectomy. 6. Elevated troponin. I do not think it is cardiac related. He is not complaining of chest pain, so we will observe for now. 7. Pulmonary nodule. This patient needs to follow up with Pulmonary Department as an outpatient. 8. Conjunctivitis. I will put this patient on erythromycin ointment 4 times a day. 9. Deep vein thrombosis prophylaxis with Lovenox. 10. Gastrointestinal prophylaxis with proton pump inhibitors. cc: Charlie Catherine MD
[2019-06-05] MEDS: ERYTHROMYCIN OPH OINTMENT OPH SCH ×3 (14:16→22:35)
--- NOTE | 2019-06-05 15:16 | ECHO REPORT ---
ORDER DATE: 06/04/2019 MEASUREMENTS: 1. Septal thickness 1.0. 2. Left ventricular internal end-diastolic 5.2. 3. Posterior wall thickness 1.0. 4. Left ventricular internal end-systole 2.7. 5. Aortic root 3.2. 6. Left atrium 3.1. SUMMARY: 1. Fair quality study. 2. Aortic valve is trileaflet and opens normally on 2-dimensional images. The peak gradient across the aortic valve is less than 10 mmHg. Mitral, tricuspid, and pulmonic valves are without evidence of structural abnormality with trace mitral regurgitation and mild tricuspid regurgitation. The estimated systolic PA pressure by Doppler is 35 to 40 mmHg, suggesting mild pulmonary hypertension. The aortic root is normal in size. 3. Normal left ventricle dimensions demonstrated. The left ventricle is hyperdynamic with an estimated left ventricular ejection fraction greater than 75%. No regional wall motion abnormalities are evident. Doppler suggests grade 1 left ventricular diastolic dysfunction. The left atrium, right atrium, and right ventricle are normal in size with grossly preserved right ventricular systolic function. 4. No pericardial effusion. 5. Appearance of the inferior vena cava suggests normal central venous pressure. 6. Intravenous agitated saline contrast study performed reveals no evidence of [id number] intracardiac shunting. CONCLUSIONS: 1. Mild tricuspid regurgitation with mild pulmonary hypertension by Doppler. 2. Hyperdynamic left ventricle with estimated left ventricular ejection fraction at least 75%. 3. Grade 1 left ventricular diastolic dysfunction suggested. cc: MD Charlie Gómez MD
--- NOTE | 2019-06-05 20:10 | CONSULTATION ---
DATE OF CONSULTATION: 06/05/2019 REASON FOR CONSULT: Stroke history. HISTORY OF PRESENT ILLNESS: This is a 63-year-old, right-handed male with a history of stroke, hypertension, diabetes and prostate cancer. He was admitted yesterday with symptoms concerning for stroke. History is from the patient and attentive family. Two days ago the patient complained of blurry or double vision. He went to bed that evening and the next day, instead of waking up in the early hours making his coffee and getting ready for the day, he stayed in bed until 3 p.m. When his got him out of bed, she noticed he consistently listed to the left. He was having a difficult time sitting up and walking. He is having a hard time controlling his left hand and has "scared" patient himself on various occasions bringing it to close to his face and surprising himself. There was not report of loss of consciousness, numbness, headache, or other neurologic symptom. Head CT on arrival did not show acute findings. MRI of the brain performed yesterday showed a small recent white matter infarction within the left cerebellar peduncle. There is also extensive, diffuse, chronic microvascular ischemic changes. The patient was here in August of 2018 with a right basal ganglia region ischemic stroke. He takes aspirin 325 mg daily at home as well as Lipitor. He continues to smoke cigarettes. PAST MEDICAL AND SURGICAL HISTORY: Hypertension, hyperlipidemia, type 2 diabetes, right basal ganglia region ischemic stroke in August 2018, prostate cancer, rheumatoid arthritis, cholecystectomy and prostate surgery. FAMILY HISTORY: Positive for diabetes and hypertension. SOCIAL HISTORY: He is and lives with his . He is a smoker. No alcohol or illicits. ALLERGIES: Listed to lisinopril, reportedly causing angioedema. HOME MEDICATIONS: Include aspirin 325 mg daily, Lipitor 40 mg at bedtime, Baclofen, Aricept 10 mg at bedtime, Levemir, Cozaar, metoprolol and prednisone. PHYSICAL EXAM: Awake, reasonably alert and fully oriented. Seems to be a bit dysarthric. No language disturbance. Follows simple commands. Gaze is conjugate. EOMI, no nystagmus. Face symmetric with equal activation. Facial sensation intact. He can hear. Tongue ML. Palate elevates symmetrically. Full shrug. In general, he has good power in the limbs. LUE dysmetric, less prominent in the LLE. Reports symmetric sensation over the limbs. Reflexes absent at ankles, no clonus, plantar response is flexor right equivocal left, 1+ bl wrists. DIAGNOSTICS: MRI of the brain personally reviewed as per above. Head CT, no acute findings. MRI of the lumbar spine negative exam. Echocardiogram no evidence of thrombus. LABS: Reviewed in the chart. ASSESSMENT AND PLAN: Subacute ischemic stroke within the left cerebellar peduncle. Examination is most notable for left upper extremity dysmetria. Difficulty with coordination. Agree with typical stroke workup. I would also consider adding an MRA of the head and neck. I would also consider adding Plavix temporarily for 21 days and that can be followed again with aspirin monotherapy. Continue telemetry. Physical therapy, occupational therapy and speech therapy for swallow evaluation. Blood pressures have been reasonable. He was counseled on the importance of smoking cessation. Thank you for the consultation. cc: Helga Augustine MD MTDD
[2019-06-05] MEDS: LIPITOR PO SCH (22:34)
[2019-06-05] MEDS: ARICEPT PO SCH (22:34)
[2019-06-06] MEDS: DUONEB (A & A) INH SCH ×4 (03:51→22:07)
[2019-06-06] MEDS: HUMULIN R SUBQ SCH ×4 (07:18→21:50)
[2019-06-06 07:38] LABS: AGAP 11; BUN 8 mg/dL (8-22); CALCIUM 8.6 mg/dL (8.8-10.2); CHLORIDE 106 mmol/L (98-107); COSMO 278; CREATININE 0.6 mg/dL (0.7-1.2); ESTIMATED GFR > 60; GLUCOSE 98 mg/dL (70-104); POTASSIUM 3.6 mmol/L (3.5-5.1); SODIUM 140 mmol/L (136-145); TCO2 23 mmol/L (25-35)
[2019-06-06 07:46] LABS: CHOLESTEROL 104 mg/dL (0-200); HDL 53 mg/dL (35-55); LDL 41 mg/dL; TRIGLYCERIDES 51 mg/dL (39-160); VLDL 10 mg/dL
[2019-06-06] MEDS: PREDNISONE PO SCH (08:49)
[2019-06-06] MEDS: ASPIRIN PO SCH (08:49)
[2019-06-06] MEDS: ERYTHROMYCIN OPH OINTMENT OPH SCH ×4 (08:49→21:50)
--- NOTE | 2019-06-06 13:49 | PROGRESS NOTE ---
DATE: 06/06/2019 SUBJECTIVE: The patient is resting comfortably in bed. He has no new complaints. It looks like the redness and discharge at the level of the eyes is getting better slowly. I will continue with the same management. I have requested Physical Therapy and Occupational Therapy evaluation to see if this patient needs to go to a rehab center since he has a new stroke. His CK level normalized as well as his potassium. OBJECTIVE: Vital Signs: Temperature 99.4 degrees, pulse 87, respiratory rate 17, blood pressure 128/65, oxygen saturation 98 on room air. HEENT: Head normocephalic, no trauma. Eyes, he has some discharge bilaterally with redness. PERRLA. Neck: Supple. No JVD. No masses. Central trachea. Chest: Clear to auscultation. No wheezing. No rales. Abdomen: Soft, nontender, nondistended. No hepatosplenomegaly. Extremities: No edema, no clubbing, no cyanosis. Neurological: The patient is awake, he is alert. I do not see any weakness, probably generalized weakness. LABORATORY DATA: Sodium 140, potassium 3.6, chloride 106, bicarbonate 23, BUN 8, creatinine 0.6, glucose 98, calcium 8.6. Magnesium 2. CK 97. Triglycerides 51, cholesterol 104, LDL 41, HDL 53. ASSESSMENT AND PLAN: 1. Very tiny recent white matter infarction of the left side of the cerebellar peduncle, in addition to the advanced diffuse chronic microvascular ischemia of the white matter. This patient's blood pressure has been stable as well as the diabetes, lipid panel looks good. I will continue with same management for now. It looks like Neurology Department will consider doing an MRA of the head and neck and considering adding Plavix for 21 days, so I will put this patient today on Plavix and I will ask for an MRA of the head and neck. Plavix has been recommended for 21 days. 2. Hypertension, controlled. 3. Diabetes, controlled. Hemoglobin A1c 6.4. 4. History of cerebrovascular accident. Continue with same management. We will add Plavix to his medications for at least 21 days. 5. History of prostate cancer status post prostatectomy. 6. Elevated troponin. I do not think this is related to any cardiac condition at this moment. No chest pain. We will keep an eye on him. 7. Pulmonary nodule. The patient will need to follow up with Pulmonary Department as an outpatient. 8. Conjunctivitis. Continue with erythromycin 4 times a day. 9. Deep vein thrombosis prophylaxis with Lovenox. 10. Gastrointestinal prophylaxis with proton pump inhibitors. cc: Charlie Catherine MD
--- NOTE | 2019-06-06 15:17 | Diag Imaging Result Doc PS360 ---
EXAM: MRA BRAIN W/O CONTRAST 06/06/2019 HISTORY: stroke TECHNIQUE: 3-D [id number] COMMENT: There is no evidence of aneurysm or major branch occlusion. Visualization of some of the peripheral branches is suboptimal. IMPRESSION: No definite abnormality. Electronically signed by Mendoza Cervantes 06/06/2019 3:15 PM
--- NOTE | 2019-06-06 15:19 | Diag Imaging Result Doc PS360 ---
EXAM: MRA NECK W/CONT 06/06/2019 HISTORY: stroke TECHNIQUE: 3-D contrast enhanced MRA COMMENT: Both common carotid and vertebral arteries are patent. The basilar artery is patent. The internal carotid arteries are normal in appearance. IMPRESSION: No definite abnormality. Electronically signed by Mendoza Cervantes 06/06/2019 3:17 PM
[2019-06-06] MEDS: PLAVIX PO SCH (15:54)
--- NOTE | 2019-06-06 18:33 | PROGRESS NOTE ---
DATE: 06/06/2019 SUBJECTIVE: No major overnight events. The patient states he feels okay. OBJECTIVE: Vital signs reviewed in the chart. Blood pressure 108 to 150 systolic over 60s to 80s diastolic. Mr. Henriquez is supine in bed with head of bed elevated. He appears to be nearly asleep when I enter the room. He is easily waked and can be attentive during my time at the bedside. He continues with the dysmetria, most prominent in the left upper extremity. He is completely oriented. DIAGNOSTIC DATA: MRA of the head and neck did not show aneurysm or evidence of major stenosis. LABORATORY DATA: Labs reviewed in the chart. ASSESSMENT AND PLAN: Subacute ischemic stroke within the left cerebellar peduncle, has been stable neurologically. Blood pressures have been reasonable. No further recommendations to add to my prior note. He was again counseled to stop smoking. cc: Helga Augustine MD MTDD
[2019-06-06] MEDS: LIPITOR PO SCH (21:50)
[2019-06-06] MEDS: ARICEPT PO SCH (21:50)
[2019-06-07] MEDS: DUONEB (A & A) INH SCH ×2 (03:45→07:41)
[2019-06-07] MEDS: HUMULIN R SUBQ SCH (06:47)
[2019-06-07 08:35] LABS: AGAP 12; BUN 8 mg/dL (8-22); CALCIUM 8.6 mg/dL (8.8-10.2); CHLORIDE 104 mmol/L (98-107); COSMO 276; CREATININE 0.7 mg/dL (0.7-1.2); ESTIMATED GFR > 60; GLUCOSE 101 mg/dL (70-104); POTASSIUM 3.3 mmol/L (3.5-5.1); SODIUM 139 mmol/L (136-145); TCO2 23 mmol/L (25-35)
[2019-06-07] MEDS: ASPIRIN PO SCH (09:18)
[2019-06-07] MEDS: PLAVIX PO SCH (09:18)
[2019-06-07] MEDS: PREDNISONE PO SCH (09:18)
[2019-06-07] MEDS: ERYTHROMYCIN OPH OINTMENT OPH SCH ×2 (09:19→12:15)
[2019-06-07 11:48] VITALS: BP 125/73
[2019-06-07] MEDS ORDERED: KLOR-CON PO ONE (13:10)
--- NOTE | 2019-06-07 14:33 | DISCHARGE SUMMARY ---
ADMISSION DATE: 06/04/2019 DISCHARGE DATE: DISCHARGE DIAGNOSES: 1. Very tiny recent white matter infarction of the left side of the cerebellar peduncle in addition to the advanced diffuse chronic microvascular ischemia of the white matter. 2. Hypertension. 3. Diabetes. 4. History of cerebrovascular accident. 5. History of prostate cancer, status post prostatectomy. 6. Elevated troponin, likely noncardiac-related. 7. Pulmonary nodule. 8. Conjunctivitis. PROCEDURES PERFORMED: 1. Chest x-ray dated 06/03/2019. Impression: No evidence of acute pathology. 2. Head CT scan dated 06/03/2019. Impression: Stable chronic changes as described. 3. Chest CT scan dated 06/04/2019. 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 No acute pneumonia. A small nonspecific nodule in the apical segment of the right lower lobe. 4. Brain MRI dated 06/04/2019. Impression: Very tiny recent white matter infarction of the left cerebellar peduncle. 5. Lumbar spine MRI dated 06/04/2019. Impression: Negative exam. 6. Echocardiogram dated 06/04/2019. Conclusion: Mild tricuspid regurgitation with mild pulmonary hypertension by Doppler. Hemodynamic left ventricle with estimated left ventricular ejection fraction at least 75% and grade 1 left ventricular diastolic dysfunction suggested. 7. Brain MRA and neck MRA. Impression: No definite abnormality. 8. Carotic ultrasound dated 06/04/2019. Stenosis 0 to 39 percent. HOSPITAL COURSE: A 64-year-old, -[place] male with a past medical history of rheumatoid arthritis, hypertension, hyperlipidemia, diabetes, prostate cancer, history of right basal ganglia CVA in August 2018. Presented to the emergency department and was admitted on 06/04/2019 because apparently, the night before of admission, he started having some visual problems including double vision. Apparently, he has been not acting like himself. He denies any new prescription or problems before that. Apparently, the next day after getting these problems, he stayed in bed until 3 p.m. When his got him out of bed, she noticed he consistently was inclining to the left. He was having some difficulty sitting up and walking, and he was having some difficulty controlling his left hand. CT scan did not show any findings. MRI of the brain performed showed a recent small white matter infarction within the left cerebellar peduncle. There are also extensive diffuse chronic microvascular ischemic changes. The patient has been placed on medications for this problem including aspirin which he has been taking at home. Additionally, they recommended to do an MRI of the head and neck. That was negative. When I evaluated the patient for the very first time, he had some redness in his eye and also some discharge, so it looks like he also has conjunctivitis. I started erythromycin on him. He seems to be getting a little bit better. The MRA of the head and neck did not show any issues, and the carotid ultrasound did not show any obstruction. Echocardiogram did not show any thrombus. Preserved ejection fraction with pulmonary hypertension mostly, and some tricuspid regurgitation. The patient seems to be stable. The neurology department has recommended to start this patient on Plavix for at least 21 days and then stop, so we will continue with that treatment as well. Blood pressure and blood sugar are really stable. Actually, his hemoglobin A1c is around 6.4, which is good. Today, this patient will be discharged to a rehab center since he has generalized weakness, so he can get his strength back. Then he will need to follow up with his primary care doctor in 3 weeks and he needs also to follow up with a geoduck diver in 1 month to check on his pulmonary nodule. PHYSICAL EXAMINATION: Vital Signs: Temperature 98.4 degrees, pulse 96, respiratory rate 15, blood pressure 125/73, oxygen saturation 96 on room air. HEENT: Head normocephalic. No trauma. His eyes are pink and he had a little bit of discharge. PERRLA. Neck: Supple. No JVD. No masses. Central trachea. Chest: Clear to auscultation. No wheezing. No rales. Abdomen: Soft, nontender, nondistended. No hepatosplenomegaly. Extremities: No edema, no clubbing, no cyanosis. Neurological Examination: The patient is awake. He is alert. He is answering my questions. He does have generalized weakness. LABORATORY DATA: Sodium 139, potassium 3.3, chloride 104, bicarbonate 23, BUN 8, creatinine 0.7, glucose 101, and calcium 8.6. DISCHARGE MEDICATIONS: Acetaminophen 650 mg p.o. q.6 hours as needed for fever, aspirin 325 mg p.o. daily, atorvastatin 40 mg p.o. at bedtime, baclofen 10 mg p.o. b.i.d., Plavix 75 mg p.o. daily for 19 more days, donepezil 10 mg p.o. at bedtime, erythromycin ophthalmic ointment 1 application 4 times a day in each eye, Levemir 15 units subcutaneous at bedtime, losartan 50 mg p.o. at bedtime, metoprolol 50 mg p.o. b.i.d., nicotine patch 14 mg as needed every 24 hours transdermal, prednisone 2 tablets p.o. daily, 5 mg tablets. cc: Charlie Catherine MD
--- NOTE | 2019-06-07 15:06 | PROGRESS NOTE ---
DATE: 06/07/2019 SUBJECTIVE: Dr. Augustine saw Mr. Henriquez for initial Neurology evaluation. He has MRI evidence of left cerebellar peduncle infarction. Brain MRA and cervical MRA were unremarkable. Echocardiogram did not show source of embolus. Systolic blood pressures have been stable 120s to 150s in the last 24 hours. He reports no deterioration or new problems over the last 24 hours. He and family think the clumsiness may be a little bit improved today. PHYSICAL EXAMINATION: On exam now, he is awake, alert, attentive. He seems a little bit slow to answer questions. I did not test his cognitive function thoroughly. Speech is slightly dysarthric, but easily understood. Language function is intact on brief bedside testing. He has good lateral eye movements without significant or pathologic nystagmus. Facial motility is a little bit diminished bilaterally, but symmetric. Tongue and palate are midline. Shoulder shrug is good bilaterally. He has some dystaxia in the arms, significantly more prominent on the left. I did not test his gait. He reports good pinprick appreciation over the palms. Proprioception is good at the 2nd finger MP joint bilaterally. Visual dacosta are full to confrontational finger counting tested grossly. IMPRESSION AND PLAN: Acute ischemic left cerebellar peduncle infarction with stable relatively moderate left lotus-dystaxia. He has risk factors for cerebrovascular ischemic problems including prior right basal ganglia infarction, dyslipidemia, hypertension, diabetes mellitus type 2, age. In light of his stable course with slight improvement noted on exam and his negative workup, I do not think we need to do anything urgently from a neurologic standpoint today. I encouraged him to be careful with activities. Thanks for asking Neurology to see Mr. Henriquez. cc: Zulema Bey III, MD [facility] CENTERMayank
--- NOTE | 2019-06-09 06:38 | Carotid Study ---
DATE: 06/04/2019 STUDY: Carotid duplex study. DATE OF STUDY: 06/08/2019. REFERRING PHYSICIAN: Dr. Chino READING PHYSICIAN: Dr. Portillo. AUTOMATIC WHEEL LINE OPERATOR: Barbara. INDICATIONS: Stroke. FINDINGS: The carotid systems were imaged bilaterally without any findings of significant plaque disease, elevated velocities, or turbulent flow. There was antegrade vertebral flow bilaterally. The percent stenosis is 0 to 39 percent on both sides. INTERPRETATION: Normal carotid imaging studies. cc: MD Charlie Peterson MD
== END 2019-06-07 17:16 | DRG 66 ==
LOC: SUPCPDRO → ED 18:10 → SUATTDRO 06-04 00:03 → 3N 06-04 00:03
PROVIDERS: ATTEND Internal Medicine